=== PATIENT | female | born 1980 | race Caucasian/White ===

== ENCOUNTER 2019-10-13 03:09 | Emergency (ER) | payer MEDICAID ==
[2019-10-13] MEDS ORDERED: AMOXIL 500 MG PO ONE (03:34)
[2019-10-13] MEDS ORDERED: NORCO 5/325 MG PO ONE (03:35)
[2019-10-13] MEDS ORDERED: NORCO 5/325 MG ONE (03:40)
[2019-10-13] MEDS ORDERED: AMOXIL 500 MG ONE (03:40)
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
[2019-10-13 04:12] VITALS: BP 182/100; PULSE 71; O2SAT 98
== END 2019-10-13 04:13 | disposition home or self-care (01) ==
LOC: ED 03:09
DX: K08.89 Other specified disorders of teeth and supporting structures (principal)
CPT/HCPCS: 99283; A9270-GY